=== PATIENT | male | born 1985 | race Two or more races ===

== ENCOUNTER 2019-06-04 19:11 | Emergency (ER) | payer SELFPAY ==
[~2019-06-04] VITALS: Ht 185.4 cm; Wt 84.1 kg
[2019-06-04 20:29] LABS: BASO % 0 % (0-3); EOS % 0 % (0-3); HEMATOCRIT 42.7 % (39.0-53.0); HEMOGLOBIN 14.6 g/dL (13.0-17.5); LYMPH # 0.4 x10^3/uL (1.0-4.8); LYMPH % 4 % (24-48); MEAN CORPUSCULAR HEMOGLOBIN 29 pg (25-35); MEAN CORPUSCULAR HGB CONC 34 g/dL (31-37); MEAN CORPUSCULAR VOLUME 86 fL (79-100); MONO # 0.3 x10^3/uL (0.0-1.1); MONO % 4 % (0-9); NEUT # 8.1 x10^3/uL (1.8-7.7); NEUT % 91 % (31-73); PLATELET COUNT 182 x10^3/uL (140-400); RED CELL DISTRIBUTION WIDTH 13.4 % (11.5-14.5); WHITE BLOOD COUNT 8.8 x10^3/uL (4.0-11.0)
[2019-06-04] MEDS ORDERED: ONDANSETRON PF 4 MG/2 ML VIAL. IV ONE (20:30)
[2019-06-04] MEDS ORDERED: fentaNYL PF VIAL 100 MCG/2 ML VIAL IV ONE (20:30)
[2019-06-04] MEDS ORDERED: IV NORMAL SALINE 1000ML BAG 1,000 ML IV ONE (20:30)
[2019-06-04 20:35] LABS: CALCIUM 8.3 mg/dL (8.5-10.1); GFR 86.6; POTASSIUM 3.6 mmol/L (3.5-5.1)
[2019-06-04 20:41] LABS: ALBUMIN/GLOBULIN RATIO 1.4 (1.0-1.7); TOTAL BILIRUBIN 0.9 mg/dL (0.2-1.0); TOTAL PROTEIN 6.9 g/dL (6.4-8.2)
[2019-06-04 20:55] LABS: BILIRUBIN,URINE NEGATIVE (NEG); CLARITY,URINE CLEAR; COLOR,URINE YELLOW; NITRITE,URINE NEGATIVE (NEG); PH,URINE 7.5 (<5.0-8.0); PROTEIN,URINE NEGATIVE (NEG-TRACE)
[2019-06-04 21:02] LABS: BACTERIA,URINE 0 /HPF (0-FEW); RBC,URINE 0 /HPF (0-2); SQUAMOUS EPITHELIAL CELL,UR OCC /LPF
[2019-06-04] MEDS ORDERED: CONTRAST GIVEN. MC PRN (21:30)
[2019-06-04] MEDS ORDERED: IOHEXOL 300 MG/ML 100ML VIAL. IV ONE (21:30)
[2019-06-04 21:36] LABS: % BANDS 10 % (0-9); % LYMPHS 2 % (24-48); % MONOS 5 % (0-10); % SEGS 83 % (35-66); PLT ESTIMATE ADEQUATE (ADEQUATE)
--- NOTE | 2019-06-04 21:45 | RAD ---
Study: CT abdomen/pelvis with intravenous contrast Indication: Right lower quadrant abdominal pain. Comparison: None. Technique: Helical CT imaging performed of the abdomen and pelvis after the intravenous administration of 75 cc Omnipaque 300 contrast. Sagittal and coronal reformats were obtained. One or more of the following individualized dose reduction techniques were utilized for this examination: 1. Automated exposure control 2. Adjustment of the mA and/or kV according to patient size 3. Use of iterative reconstruction technique. Findings: Chest: Unremarkable. Liver: Hepatic steatosis. Gallbladder/Biliary Tree: Within normal limits. Pancreas: Partial fatty infiltration. Otherwise unremarkable. Spleen: Enlarged in the craniocaudal dimension at 15 cm. Adrenal Glands: Normal morphology. Kidneys/Ureters/Bladder: Unremarkable. Reproductive Organs: Unremarkable. Colon: Incompletely formed stool scattered throughout the entirety of the colon in keeping with a diarrheal state. No localized wall thickening or pericolonic inflammation. Appendix: The appendix is normal. Small Bowel: Nonobstructed. Normally located ligament of Treitz. Stomach: Unremarkable. Vasculature: Unremarkable. Lymph Nodes: Unremarkable. Peritoneum and Body Wall: No free fluid or pneumoperitoneum. Small fat-containing internal hernia on the right. Bones: No acute osseous abnormality. T9 vertebral body hemangioma. Miscellaneous: None. Impression: 1. Incompletely formed stool scattered throughout the colon compatible with a diarrheal state. No CT findings to suggest a superimposed colitis or enteritis. No bowel obstruction. 2. Normal appendix. 3. Hepatic steatosis. 4. Mild enlargement of the spleen. Electronically signed by: ALPHONSE ORR MD (06/04/2019 9:43 PM) [id number]
[2019-06-04] MEDS ORDERED: ONDA-84 PO (22:16)
--- NOTE | 2019-06-04 22:22 | PHYS DOC ---
Past Medical History Past Medical History: GERD, High Cholesterol Additional Past Medical Histor: indigestion (AURELIA WARNER APRN) Past Surgical History: No Surgical History (AURELIA WARNER APRN) Smoking Status: Never Smoker Alcohol Use: None Drug Use: None (AURELIA WARNER APRN) Attending Signature I have participated in the care of this patient and I have reviewed and agree with all pertinent clinical information above including history, exam, and recommendations. (SEBASTIÁN ROY MD) Adult General Chief Complaint Chief Complaint: ABDOMINAL PAIN HPI HPI Patient is a 34 year old male who presents to the emergency department for evaluation of nausea, vomiting, right lower quadrant abdominal pain, and chest pain that began today. Patient reports that this he has a history of GERD and high cholesterol and that he ate a lot of greasy food yesterday. Patient states he woke up this morning with the abdominal pain, but he felt better after he vomited. Patient states that he has only vomited once today. He states he feels like he has to have a bowel movement and he thinks it will be diarrhea. Patient states that his last bowel movement was a normal formed stool and that happened earlier today. He denies any fever, cough, shortness of breath, headache, dizziness, rash, sore throat, dysuria, hematuria, or foul-smelling urine. He currently rates his pain a 10 out of 10 on the pain scale he states that the only thing that has helped to reduce his pain was after he vomited this morning, he denies any alleviating factors. (AURELIA WARNER APRN) Review of Systems Review of Systems Complete ROS is negative unless otherwise noted in HPI. (AURELIA WRANER APRN) Current Medications Current Medications Current Medications Medications (Trade) Dose Ordered Sig/Andreas Start Time Stop Time Status Last Admin Dose Admin Acetaminophen (Tylenol) 1,000 mg 1X ONCE 06/04/19 22:30 06/04/19 22:31 DC 06/04/19 22:29 1,000 MG Fentanyl Citrate (Fentanyl 2ml Vial) 50 mcg 1X ONCE 06/04/19 20:30 06/04/19 20:31 DC 06/04/19 20:42 50 MCG Info (CONTRAST GIVEN -- Rx MONITORING) 1 each PRN DAILY PRN 06/04/19 21:30 06/04/19 23:41 DC Iohexol (Omnipaque 300 Mg/ml) 75 ml 1X ONCE 06/04/19 21:30 06/04/19 21:31 DC 06/04/19 21:30 75 ML Lorazepam (Ativan Inj) 1 mg 1X ONCE 06/04/19 22:15 06/04/19 22:16 DC 06/04/19 22:05 1 MG Ondansetron HCl (Zofran) 4 mg 1X ONCE 06/04/19 20:30 06/04/19 20:31 DC 06/04/19 20:41 4 MG Sodium Chloride 500 ml @ 500 mls/hr 1X ONCE 06/04/19 22:30 06/04/19 23:29 DC 06/04/19 22:29 500 MLS/HR (SEBASTIÁN ROY MD) Allergies Allergies Allergies Coded Allergies Type Severity Reaction Last Updated Verified No Known Drug Allergies 06/04/19 No (SEBASTIÁN ROY MD) Physical Exam Physical Exam See Above Constitutional: Well developed, well nourished, mild distress, non-toxic appearance, appears anxious. [] HENT: Normocephalic, atraumatic, bilateral external ears normal, oropharynx moist, nose normal. [] Eyes: PERRLA, EOMI, conjunctiva normal, no discharge. [] Neck: Normal range of motion, no stridor. [] Cardiovascular:Heart rate regular rhythm Lungs & Thorax: Bilateral breath sounds clear to auscultation, Respirations ev en and unlabored, no retractions, no respiratory distress [] Abdomen: Bowel sounds normal, soft, right lower quadrant TTP, no rebound tenderness, no guarding, no masses, no pulsatile masses; McBurney's point tenderness to palpation, negative psoas and Rovsing signs Skin: Warm, dry, no erythema, no rash. [] Extremities: No cyanosis, ROM intact, no edema. [] Neurologic: Alert and oriented X 3, no focal deficits noted. [] Psychologic: Affect normal, judgement normal, mood normal. [] (AURELIA WARNER APRN) Current Patient Data Vital Signs Vital Signs Date Time Temp Pulse Resp B/P (MAP) Pulse Ox O2 Delivery O2 Flow Rate FiO2 06/04/19 23:10 122 18 125/72 (89) 99 Room Air 06/04/19 22:15 99.5 99.5 (SEBASTIÁN ROY MD) Lab Values Laboratory Tests Test 06/04/19 20:19 06/04/19 20:45 White Blood Count 8.8 x10^3/uL (4.0-11.0) Red Blood Count 5.00 x10^6/uL (4.30-5.70) Hemoglobin 14.6 g/dL (13.0-17.5) Hematocrit 42.7 % (39.0-53.0) Mean Corpuscular Volume 86 fL (79-100) Mean Corpuscular Hemoglobin 29 pg (25-35) Mean Corpuscular Hemoglobin Concent 34 g/dL (31-37) Red Cell Distribution Width 13.4 % (11.5-14.5) Platelet Count 182 x10^3/uL (140-400) Neutrophils (%) (Auto) 91 % (31-73) H Lymphocytes (%) (Auto) 4 % (24-48) L Monocytes (%) (Auto) 4 % (0-9) Eosinophils (%) (Auto) 0 % (0-3) Basophils (%) (Auto) 0 % (0-3) Neutrophils # (Auto) 8.1 x10^3/uL (1.8-7.7) H Lymphocytes # (Auto) 0.4 x10^3/uL (1.0-4.8) L Monocytes # (Auto) 0.3 x10^3/uL (0.0-1.1) Eosinophils # (Auto) 0.0 x10^3/uL (0.0-0.7) Basophils # (Auto) 0.0 x10^3/uL (0.0-0.2) Segmented Neutrophils % 83 % (35-66) H Band Neutrophils % 10 % (0-9) H Lymphocytes % 2 % (24-48) L Monocytes % 5 % (0-10) Platelet Estimate Adequate (ADEQUATE) Sodium Level 137 mmol/L (136-145) Potassium Level 3.6 mmol/L (3.5-5.1) Chloride Level 100 mmol/L (98-107) Carbon Dioxide Level 25 mmol/L (21-32) Anion Gap 12 (6-14) Blood Urea Nitrogen 13 mg/dL (8-26) Creatinine 1.0 mg/dL (0.7-1.3) Estimated GFR (Cockcroft-Gault) 86.6 BUN/Creatinine Ratio 13 (6-20) Glucose Level 100 mg/dL (70-99) H Calcium Level 8.3 mg/dL (8.5-10.1) L Total Bilirubin 0.9 mg/dL (0.2-1.0) Aspartate Amino Transferase (AST) 34 U/L (15-37) Alanine Aminotransferase (ALT) 54 U/L (16-63) Alkaline Phosphatase 90 U/L (46-116) Troponin I Quantitative < 0.017 ng/mL (0.000-0.055) Total Protein 6.9 g/dL (6.4-8.2) Albumin 4.0 g/dL (3.4-5.0) Albumin/Globulin Ratio 1.4 (1.0-1.7) Urine Collection Type Unknown Urine Color Yellow Urine Clarity Clear Urine pH 7.5 (<5.0-8.0) Urine Specific Minto >=1.030 (1.000-1.030) Urine Protein Negative mg/dL (NEG-TRACE) Urine Glucose (UA) Negative mg/dL (NEG) Urine Ketones (Stick) Trace mg/dL (NEG) Urine Blood Negative (NEG) Urine Nitrite Negative (NEG) Urine Bilirubin Negative (NEG) Urine Urobilinogen Dipstick 1.0 mg/dL (0.2 mg/dL) Urine Leukocyte Esterase Negative (NEG) Urine RBC 0 /HPF (0-2) Urine WBC 5-10 /HPF (0-4) Urine Squamous Epithelial Cells Occ /LPF Urine Bacteria 0 /HPF (0-FEW) Urine Mucus Mod /LPF Laboratory Tests 06/04/19 20:19 Laboratory Tests 06/04/19 20:19 (SEBASTIÁN ROY MD) EKG EKG 2026-sinus tachycardia rate 103, no ST elevation, no STEMI, read by Dr. Roy[] (AURELIA WARNER APRN) Radiology/Procedures Radiology/Procedures PROCEDURE: CT ABD PELV W/ IV CONTRST ONLY Study: CT abdomen/pelvis with intravenous contrast Indication: Right lower quadrant abdominal pain. Comparison: None. Technique: Helical CT imaging performed of the abdomen and pelvis after the intravenous administration of 75 cc Omnipaque 300 contrast. Sagittal and coronal reformats were obtained. One or more of the following individualized dose reduction techniques were utilized for this examination: 1. Automated exposure control 2. Adjustment of the mA and/or kV according to patient size 3. Use of iterative reconstruction technique. Findings: Chest: Unremarkable. Liver: Hepatic steatosis. Gallbladder/Biliary Tree: Within normal limits. Pancreas: Partial fatty infiltration. Otherwise unremarkable. Spleen: Enlarged in the craniocaudal dimension at 15 cm. Adrenal Glands: Normal morphology. Kidneys/Ureters/Bladder: Unremarkable. Reproductive Organs: Unremarkable. Colon: Incompletely formed stool scattered throughout the entirety of the colon in keeping with a diarrheal state. No localized wall thickening or pericolonic inflammation. Appendix: The appendix is normal. Small Bowel: Nonobstructed. Normally located ligament of Treitz. Stomach: Unremarkable. Vasculature: Unremarkable. Lymph Nodes: Unremarkable. Peritoneum and Body Wall: No free fluid or pneumoperitoneum. Small fat-containing internal hernia on the right. Bones: No acute osseous abnormality. T9 vertebral body hemangioma. Miscellaneous: None. Impression: 1. Incompletely formed stool scattered throughout the colon compatible with a diarrheal state. No CT findings to suggest a superimposed colitis or enteritis. No bowel obstruction. 2. Normal appendix. 3. Hepatic steatosis. 4. Mild enlargement of the spleen.[] (AURELIA WARNER APRN) Course & Med Decision Making Course & Med Decision Making Pertinent Labs and Imaging studies reviewed. (See chart for details) Patient is a 34-year-old male who presented to the emergency room for evaluation of right lower quadrant abdominal pain, nausea, vomiting, and left chest pain that began today. His EKG revealed no acute findings. CBC is unremarkable; CMP revealed a glucose of 100, calcium of 8.3, otherwise unremarkable, troponin was negative, UA is reveals 5-10 white blood cells however patient is asymptomatic and there are 0 bacteria and few squames, will treat UTI if urine culture is concerning. CT abdomen pelvis revealed a normal appendix, hepatic steatosis, findings consistent with a diarrheal state, and mild enlargement of the spleen, no acute findings. Patient was given 1000 mL of normal saline in the emergency department 4 mg of Zofran, and 50 mcg of fentanyl. He states that his chest pain and his abdominal pain went away with the pain medication, patient reported no nausea after this medication. Patient's heart rate continued to be elevated in the 110's patient was given 1 mg of Ativan as he continued to appear anxious. Temperature was 99.5 oral an additonal 500 mL of NS and 1gm of PO tylenol was ordered. Plant to d/c patient home with prescription for zofran once heart rate improves. Report to Dr. Roy who will evaluate pt response to additional medications and make final disposition. (AURELIA WARNER APRN) Dragon Disclaimer Dragon Disclaimer This electronic medical record was generated, in whole or in part, using a voice recognition dictation system. (AURELIA WARNER APRN) Departure Departure Impression: Primary Impression: Diarrhea Additional Impressions: Abdominal pain, RLQ (right lower quadrant) Chest pain of unknown etiology Disposition: HOME, SELF-CARE Condition: STABLE Referrals: UNKNOWN PCP NAME (PCP) Patient Instructions: Abdominal Pain (Nonspecific), Diarrhea, [id number], Diet for Diarrhea, Adult, Nausea and Vomiting, [id number] Additional Instructions: Fill prescriptions and use them as directed. Recommend clear fluids for the next 24 hours. Then you may advance to bland foods such as bananas, rice, applesauce, and dry toast. Follow-up with your primary care doctor in the next 1-2 days. Return to the emergency room if your symptoms worsen. Scripts Ondansetron Hcl (ONDANSETRON HCL) 4 Mg Tablet 1 TAB PO PRN Q6HRS PRN for NAUSEA/VOMITING for 3 Days, #10 TAB 0 Refills Prov: AUREILA WARNER APRN 06/04/19 Problem Qualifiers Primary Impression: Diarrhea Diarrhea type: unspecified type Qualified Codes: R19.7 - Diarrhea, unspecified AURELIA WARNER APRN Jun 04, 2019 22:22 SEBASTIÁN ROY MD Jun 05, 2019 01:34
[2019-06-04] MEDS ORDERED: ACETAMINOPHEN 500 MG TABLET PO ONE (22:30)
[2019-06-04] MEDS ORDERED: IV NORMAL SALINE 500ML BAG 500 ML IV ONE (22:30)
[2019-06-04 23:10] VITALS: BP 125/72
--- NOTE | 2019-06-05 05:50 | EKG ---
[facility] [address] [place] [address] Test Date: 2019-06-04 Test Time: 20:27:38 Pat Name: CRISTOBAL CHAVES Department: Room: Gender: M Public Service Officer: : 1985 Requested By: AURELIA WARNER Order Number: [id number] Reading MD: Measurements Intervals [place] Rate: 102 P: 41 MT: 168 QRS: 2 QRSD: 78 T: 31 QT: 314 QTc: 413 Interpretive Statements SINUS TACHYCARDIA NON SPECIFIC ST-T ABNORMALITY (ELEVATION) OTHERWISE NORMAL ECG No previous ECG available for comparison
== END 2019-06-04 23:12 | disposition home or self-care (01) ==
LOC: ER 19:11
DX: R07.89 Other chest pain (principal); R19.7 Diarrhea, unspecified; R10.31 Right lower quadrant pain; K21.9 Gastro-esophageal reflux disease without esophagitis; E78.00 Pure hypercholesterolemia, unspecified; Z79.899 Other long term (current) drug therapy
CPT/HCPCS: 36415; 74177; 80053; 81001; 84484; 85007; 85025; 87086; 93005; 96361; 96374; 96375; 99285; J2060; J2405; J3010; J7030; J7040; Q9967

== ENCOUNTER 2019-12-01 16:07 | Emergency (ER) | payer SELFPAY ==
[~2019-12-01] VITALS: Ht 185.4 cm; Wt 81.8 kg
[~2019-12-01 16:07] MED LIST: ONDA-84 PO
[2019-12-01 18:17] LABS: BASO % 0 % (0-3); EOS % 0 % (0-3); HEMOGLOBIN 13.5 g/dL (13.0-17.5); LYMPH # 1.3 x10^3/uL (1.0-4.8); LYMPH % 24 % (24-48); MEAN CORPUSCULAR HEMOGLOBIN 31 pg (25-35); MEAN CORPUSCULAR HGB CONC 35 g/dL (31-37); MEAN CORPUSCULAR VOLUME 86 fL (79-100); MONO # 0.3 x10^3/uL (0.0-1.1); MONO % 6 % (0-9); NEUT # 3.7 x10^3/uL (1.8-7.7); NEUT % 69 % (31-73); PLATELET COUNT 188 x10^3/uL (140-400); RED BLOOD COUNT 4.41 x10^6/uL (4.30-5.70); RED CELL DISTRIBUTION WIDTH 12.8 % (11.5-14.5); WHITE BLOOD COUNT 5.3 x10^3/uL (4.0-11.0)
--- NOTE | 2019-12-01 18:30 | RAD ---
PORTABLE CHEST 1V Clinical Indication: Reason: chest pain x week. PUI : Comparison: None. Findings: The cardiomediastinal silhouette is normal. Lungs are clear. There is no pneumothorax. No pleural effusion is appreciated. No acute bone abnormality. IMPRESSION: No acute cardiopulmonary process. Electronically signed by: Patel Og MD (12/01/2019 6:27 PM) [facility]
[2019-12-01 18:32] LABS: CREATININE 0.9 mg/dL (0.7-1.3); GFR 97.8
[2019-12-01 18:38] LABS: ALBUMIN 3.9 g/dL (3.4-5.0); ALBUMIN/GLOBULIN RATIO 1.2 (1.0-1.7); MAGNESIUM 2.1 mg/dL (1.8-2.4); TOTAL BILIRUBIN 0.5 mg/dL (0.2-1.0); TOTAL PROTEIN 7.2 g/dL (6.4-8.2)
[2019-12-01] MEDS ORDERED: PRED50TA PO (19:42)
[2019-12-01] MEDS ORDERED: ASCO500C PO (19:42)
[2019-12-01] MEDS ORDERED: CHOL40002 PO (19:42)
[2019-12-01] MEDS ORDERED: ZINC50TA39 PO (19:42)
--- NOTE | 2019-12-01 19:42 | PHYS DOC ---
Past Medical History Past Medical History: Anxiety, GERD, High Cholesterol Additional Past Medical Histor: indigestion Past Surgical History: Other Additional Past Surgical Histo: LASIK Smoking Status: Never Smoker Alcohol Use: None Drug Use: None General Adult EDM: Chief Complaint: ABNORMAL LABS HPI: HPI: Patient is a 34 year old male with history of high cholesterol, acid reflux, who presents the ED today complaining of 2 out of 10 substernal chest pain that has been going on since November 26, 2019, he states on November 27, 2019 be tested positive for COVID19. He states he received his results and he was told he has critical values. Denies anything specifically exacerbating or relieving his pain. He describes the pain as " when I have high cholesterol." Denies any fever, coughing, congestion. Review of Systems: Review of Systems: Constitutional: Denies fever or chills. [] Eyes: Denies change in visual acuity. [] HENT: Denies nasal congestion or sore throat. [] Respiratory: Denies cough or shortness of breath. [] Cardiovascular: Reports chest pain GI: Denies abdominal pain, nausea, vomiting, bloody stools or diarrhea. [] : Denies dysuria. [] Musculoskeletal: Denies back pain or joint pain. [] Integument: Denies rash. [] Neurologic: Denies headache, focal weakness or sensory changes. [] Psychiatric: Denies depression or anxiety. [] Heart Score: HEART Score for Chest Pain: HEART Score for Chest Pain Response (Comments) Value History Slighlty/Non-Suspicious 0 ECG Normal 0 Age < 45 0 Risk Factors 1 or 2 Risk Factors 1 Troponin < Normal Limit 0 Total 1 Risk Factors: Risk Factors: DM, Current or recent (<one month) smoker, HTN, HLP, family his tory of CAD, obesity. Risk Scores: Score 0 - 3: 2.5% MACE over next 6 weeks - Discharge Home Score 4 - 6: 20.3% MACE over next 6 weeks - Admit for Clinical Observation Score 7 - 10: 72.7% MACE over next 6 weeks - Early Invasive Strategies Allergies: Allergies: Allergies Coded Allergies Type Severity Reaction Last Updated Verified No Known Drug Allergies 06/04/19 No Physical Exam: PE: Constitutional: Well developed, well nourished, no acute distress, non-toxic appearance. [] HENT: Normocephalic, atraumatic, bilateral external ears normal, oropharynx moist, no oral exudates, nose normal. [] Eyes: PERRLA, EOMI, conjunctiva normal, no discharge. [] Neck: Normal range of motion, no tenderness, supple, no stridor. [] Cardiovascular:Heart rate regular rhythm, no murmur [] Lungs & Thorax: Bilateral breath sounds clear to auscultation [] Abdomen: Bowel sounds normal, soft, no tenderness, no masses, no pulsatile masses. [] Skin: Warm, dry, no erythema, no rash. [] Back: No tenderness, no CVA tenderness. [] Extremities: No tenderness, no cyanosis, no clubbing, ROM intact, no edema. [] Neurologic: Alert and oriented X 3, normal motor function, normal sensory function, no focal deficits noted. [] Psychologic: Affect normal, judgement normal, mood normal. [] Current Patient Data: Labs: Laboratory Tests Test 12/01/19 18:05 White Blood Count 5.3 x10^3/uL (4.0-11.0) Red Blood Count 4.41 x10^6/uL (4.30-5.70) Hemoglobin 13.5 g/dL (13.0-17.5) Hematocrit 38.0 % (39.0-53.0) L Mean Corpuscular Volume 86 fL (79-100) Mean Corpuscular Hemoglobin 31 pg (25-35) Mean Corpuscular Hemoglobin Concent 35 g/dL (31-37) Red Cell Distribution Width 12.8 % (11.5-14.5) Platelet Count 188 x10^3/uL (140-400) Neutrophils (%) (Auto) 69 % (31-73) Lymphocytes (%) (Auto) 24 % (24-48) Monocytes (%) (Auto) 6 % (0-9) Eosinophils (%) (Auto) 0 % (0-3) Basophils (%) (Auto) 0 % (0-3) Neutrophils # (Auto) 3.7 x10^3/uL (1.8-7.7) Lymphocytes # (Auto) 1.3 x10^3/uL (1.0-4.8) Monocytes # (Auto) 0.3 x10^3/uL (0.0-1.1) Eosinophils # (Auto) 0.0 x10^3/uL (0.0-0.7) Basophils # (Auto) 0.0 x10^3/uL (0.0-0.2) Sodium Level 139 mmol/L (136-145) Potassium Level 4.0 mmol/L (3.5-5.1) Chloride Level 103 mmol/L (98-107) Carbon Dioxide Level 28 mmol/L (21-32) Anion Gap 8 (6-14) Blood Urea Nitrogen 11 mg/dL (8-26) Creatinine 0.9 mg/dL (0.7-1.3) Estimated GFR (Cockcroft-Gault) 97.8 BUN/Creatinine Ratio 12 (6-20) Glucose Level 117 mg/dL (70-99) H Calcium Level 8.0 mg/dL (8.5-10.1) L Magnesium Level 2.1 mg/dL (1.8-2.4) Total Bilirubin 0.5 mg/dL (0.2-1.0) Aspartate Amino Transferase (AST) 36 U/L (15-37) Alanine Aminotransferase (ALT) 37 U/L (16-63) Alkaline Phosphatase 98 U/L (46-116) Troponin I Quantitative < 0.017 ng/mL (0.000-0.055) WI-Rrw-Y-Type Natriuretic Peptide 16 pg/mL (0-124) Total Protein 7.2 g/dL (6.4-8.2) Albumin 3.9 g/dL (3.4-5.0) Albumin/Globulin Ratio 1.2 (1.0-1.7) Thyroid Stimulating Hormone (TSH) 1.766 uIU/mL (0.358-3.74) Laboratory Tests 12/01/19 18:05 Laboratory Tests 12/01/19 18:05 Vital Signs: Vital Signs Date Time Temp Pulse Resp B/P (MAP) Pulse Ox O2 Delivery O2 Flow Rate FiO2 12/01/19 17:39 99.2 86 138/80 (99) 97 99.2 12/01/19 17:00 20 Room Air EKG: EKG: [] Radiology/Procedures: Radiology/Procedures: []PROCEDURE: PORTABLE CHEST 1V PORTABLE CHEST 1V Clinical Indication: Reason: chest pain x week. PUI : Comparison: None. Findings: The cardiomediastinal silhouette is normal. Lungs are clear. There is no pneumothorax. No pleural effusion is appreciated. No acute bone abnormality. IMPRESSION: No acute cardiopulmonary process. Electronically signed by: Patel Adame MD (12/01/2019 6:27 PM) [facility] DICTATED and SIGNED BY: PATEL ADAME MD DATE: 12/01/191826 Course & Med Decision Making: Course & Med Decision Making Pertinent Labs and Imaging studies reviewed. (See chart for details) This is a 34-year-old male patient presenting to the ED today complaining of chest pain that began November 26, 2019, he tested positive for COVID19 November 26. Got results and became concerned came to the ED to be evaluated. Chest x-ray is negative, labs are negative. Patient was reassured and discharged home. Supportive care measures recommended. Dragon Disclaimer: Dragon Disclaimer: This electronic medical record was generated, in whole or in part, using a voice recognition dictation system. Departure Departure Impression: Primary Impression: Chest pain of unknown etiology Additional Impression: COVID-19 Disposition: 01 HOME, SELF-CARE Condition: STABLE Referrals: UNKNOWN PCP NAME (PCP) follow up in 1-2 weeks with your doctor Patient Instructions: Chest Pain Observation Additional Instructions: You were evaluated in the emergency room. We recommend you quarantine yourself for 14 days. Take the prescribed medications as ordered. Maintain good hand hygiene. Wear your mask in public as well as around other people. Follow-up with your doctor in the next 2 weeks. Come back to the ED at any point symptoms worsen. Scripts Azithromycin (AZITHROMYCIN TABLET) 250 Mg Tablet 1 PKG PO UD for 5 Days, #6 TAB 0 Refills 2 the first day followed by 1 for days 2-5 Prov: DAKOTA PAULA APRN 12/01/19 Ascorbic Acid (VITAMIN C) 500 Mg Capsule.er 1 CAP PO DAILY, #14 CAP 0 Refills Prov: DAKOTA PAULA APRN 12/01/19 Cholecalciferol (Vitamin D3) (Thera-D) 100 Mcg Tablet 100 MCG PO DAILY, #14 TAB Prov: DAKOTA PAULA APRN 12/01/19 Zinc (ZINC) 50 Mg Tablet 1 TAB PO DAILY, #14 TAB 0 Refills Prov: DAKOTA PAULA APRN 12/01/19 Prednisone (PREDNISONE) 50 Mg Tablet 1 TAB PO DAILY, #5 TAB Prov: DAKOTA PAULA APRN 12/01/19 Justicifation of Admission Dx: Justifications for Admission: Justification of Admission Dx: N/A DAKOTA PAULA APRN Dec 01, 2019 19:42
[2019-12-01] MEDS ORDERED: AZIT250T6 PO (19:44)
[2019-12-01 20:28] VITALS: BP 121/68
--- NOTE | 2019-12-02 04:22 | EKG ---
[facility] [address] [place] [address] Test Date: 2019-12-01 Test Time: 17:51:06 Pat Name: CRISTOBAL CHAVES Department: Room: Gender: M Talent Program Manager: : 1985 Requested By: DAKOTA PAULA Order Number: [id number] Reading MD: Measurements Intervals [place] Rate: 84 P: 34 PA: 166 QRS: 9 QRSD: 82 T: 30 QT: 332 QTc: 395 Interpretive Statements SINUS RHYTHM OTHERWISE NORMAL ECG RI6.02 No previous ECG available for comparison
== END 2019-12-01 20:36 | disposition home or self-care (01) ==
LOC: ER 16:07
DX: U07.1 COVID-19 (principal); R07.2 Precordial pain; K21.9 Gastro-esophageal reflux disease without esophagitis; E78.00 Pure hypercholesterolemia, unspecified; F41.9 Anxiety disorder, unspecified
CPT/HCPCS: 36415; 71045; 80053; 83735; 83880; 84443; 84484; 85025; 93005; 99285